=== PATIENT | female | born 1965 | race Caucasian/White ===

== ENCOUNTER 2025-04-24 07:48 | Emergency (ER) | payer SELFPAY ==
[2025-04-24 08:04] VITALS: BP 120/57; PULSE 73
== END 2025-04-24 09:34 | disposition home or self-care (01) ==
LOC: JP.ED 07:48
DX: M25.531 Pain in right wrist (principal); K21.9 Gastro-esophageal reflux disease without esophagitis; Z88.8 Allergy status to other drugs, medicaments and biological substances; Z79.899 Other long term (current) drug therapy
CPT/HCPCS: 73100-26-RT; 73100-RT; 99283